=== PATIENT | male | born 2000 | race Caucasian/White ===

== ENCOUNTER 2023-01-24 16:07 | Emergency (ER) | payer OTHER, SELFPAY ==
[2023-01-24 16:22] VITALS: BP 112/68; PULSE 80; RESP 16; TEMP 36.6; O2SAT 100; BMI 26.6
[2023-01-24 17:57] LABS: Appearance Urine UA CLEAR; Bilirubin Urine UA NEGATIVE (NEGATIVE); Color Urine UA YELLOW; Glucose Urine UA NEGATIVE (Negative); Ketones Urine UA NEGATIVE (NEGATIVE); Leukocyte Esterase Urine UA 2+ (NEGATIVE); Nitrite Urine UA NEGATIVE (Negative); Occult Blood Urine UA NEGATIVE (Negative); Protein Urine UA NEGATIVE (Negative); Specific Gravity Urine UA <=1.005 (1.000-1.035); Urobilinogen Urine UA 0.2 E.U./dL (0.2)
[2023-01-24 18:13] LABS: Bacteria Urine Occasional (0-1); Culture Indicated Urine Specimen Cultured; RBC Urine None Seen (0-5/HPF); WBC Urine 5-10/HPF (0-5/HPF)
[2023-01-24 19:07] VITALS: BP 115/70; PULSE 68; RESP 18; O2SAT 99
[2023-01-24 19:24] LABS: Urine N gonorrhoeae NOT DETECTED
[2023-01-24 19:28] LABS: Urine Chlamydia DETECTED
--- NOTE | 2023-01-24 21:42 | ED_ITS ---
HPI - Male Genitourinary General Chief complaint: Urogenital-Male Stated complaint: problem/rectum pain Time Seen by Provider: 01/24/23 18:04 Source: patient Mode of arrival: Ambulatory History of Present Illness HPI Narrative: 22-year-old male nonsmoker sexually active male presents with a few days of burning with urination and penile discharge. He denies any fever or chills nor nausea, vomiting or diarrhea. Additionally he complains of occasional blood when he wipes after a bowel movement and an itchy anus, he is concerned that he may have a hemorrhoid. He is otherwise well and free of complaint Related Data Previous Rx's Medication Instructions Recorded doxycycline hyclate 100 mg tablet 100 mg PO BID #20 tabs 01/24/23 Review of Systems Review of Systems Narrative: GENERAL: Denies chills, fatigue, malaise, fever, sweats. HEENT: Denies sinus pain, ear pain, sore throat, difficulty swallowing, dizziness. RESPIRATORY: Denies dyspnea, cough, wheezing, hemoptysis, sputum. CARDIOVASCULAR: Denies chest pain, palpitations, orthopnea, edema, GASTROINTESTINAL: See HPI : See HPI MUSCULOSKELETAL: denies weakness, joint pain, or bony pain SKIN: Denies rash, skin lesions, or other NEUROLOGIC: Denies weakness, headache, numbness, change in speech, confusion, seizures, incoordination. PSYCHIATRIC: No concerning psychosocial issues. 12 point review of systems is negative except for those stated above Patient History Social History Smoking Status: Never smoker Smoking Status: Never smoker alcohol intake frequency: 0-2 drinks per day Substance Use Type: does not use Exam Narrative Exam Narrative: GENERAL: [22] year old patient appears stated age. Well-developed patient, in mild distress. HEAD: Atraumatic. Normocephalic. EYES: Pupils equal round and reactive. Extraocular motions intact. No scleral icterus. No injection or drainage. ENT: Nose without bleeding, purulent drainage. Throat without erythema, tonsillar hypertrophy or exudate. Airway patent. NECK: Trachea midline. Non tender CARDIOVASCULAR: Regular rate and rhythm without murmurs, gallops, or rubs. RESPIRATORY: Clear to auscultation. Breath sounds equal bilaterally. No wheezes, rales, or rhonchi. GASTROINTESTINAL: Abdomen soft, non-tender, nondistended. RECTAL: Small tender ?lump? at the 8 o'clock position, likely small hemorrhoid, no evidence of thrombosis or active bleeding, no fissure EXTREMITIES: No edema or joint tenderness. BACK: Nontender without deformity or crepitance. No flank tenderness. NEURO: AOx3. SKIN: No rash or erythema of visible areas Initial Vital Signs Initial Vital Signs: Vital Signs Temperature 97.9 F 01/24/23 16:22 Pulse Rate 80 01/24/23 16:22 Respiratory Rate 16 01/24/23 16:22 Blood Pressure 112/68 01/24/23 16:22 Pulse Oximetry 100 01/24/23 16:22 Oxygen Delivery Method Room Air 01/24/23 16:22 Course Orders Ordered: Discontinued Medications Doxycycline Hyclate (Doxycycline Hyclate 100 Mg Tablet) 100 mg PO NOW ONE Stop: 01/24/23 21:43 Last Admin: 01/24/23 21:47 Dose: 100 mg Documented By: TONIO Vital Signs Vital signs: Vital Signs - 8 hr 01/24/23 16:22 01/24/23 19:07 Temperature 97.9 F Pulse Rate 80 68 Respiratory Rate 16 18 Blood Pressure 112/68 115/70 Pulse Oximetry 100 99 Oxygen Delivery Method Room Air Room Air MDM - Male Genitourinary Lab Data Labs: Lab Results 01/24/23 01/24/23 Range/Units 17:48 17:48 Urine Color Yellow Urine Appearance Clear Urine pH 7.0 (4.5-8.0) Ur Specific [place] <=1.005 (1.000-1.035) Urine Protein Negative (Negative) Urine Glucose (UA) Negative (Negative) g/dL Urine Ketones Negative (NEGATIVE) Urine Occult Blood Negative (Negative) Urine Nitrate Negative (Negative) Urine Bilirubin Negative (NEGATIVE) Urine Urobilinogen 0.2 (0.2) E.U./dL Ur Leukocyte Esterase 2+ H (NEGATIVE) Urine RBC None seen (0-5/HPF) Urine WBC 5-10/hpf H (0-5/HPF) Urine Bacteria Occasional (0-1) (None) Ur Culture Indicated? Specimen cultured Ur Chlamydia DNA (PCR) Detected H N gonorrhoeae DNA (PCR) Not detected MDM Narrative Medical decision making narrative: [22] year old patient presents with penile discharge, dysuria and itchy anus Multiple etiologies for patient's symptoms considered including, but not limited to: [Chlamydia, gonorrhea, UTI, hemorrhoid versus other] Prior Charts reviewed in our EMR Primary Historian: patient Labs reviewed and interpreted by myself: Urine positive for chlamydia Urine notes chlamydia, patient started on doxycycline tonight. He is encouraged to notify all sexual partners and encouraged them to be seen and treated as well as abstain from sexual contact until after completion of antibiotics. Additionally his exam is suggestive of possibly reduced hemorrhoid, certainly no evidence of a thrombosed or bleeding hemorrhoid. Given recommendations for [id number] treatments Findings and discharge diagnosis discussed with patient/family followed by verbalization of understanding Return precautions discussed with patient/family whom verbalize understanding of diagnosis and plan Discharge Plan Departure Patient Disposition: Home Clinical Impression: Chlamydia, Hemorrhoid Instructions: DI for Chlamydia, DI for Hemorrhoids Activity Restrictions/Additional Instructions: *You have been diagnosed with [chlamydia and likely mild external hemorrhoids] *What to do: *Please continue to take your regular medications as directed. [x ] New medication prescriptions sent to your pharmacy: [[facility] in [place] ] [ ] New medication written as a paper prescription [ ] No new medications given *Please follow up with your primary care provider in 2-3 days, call for an appointment. Let them know you were seen in the Emergency Department and that we ask that you be seen in follow up. We will electronically transmit a record of today's note if your PCP is in our system * it is very important that you informed all sexual contacts of this diagnosis so they can be evaluated and treated. No sexual contact until 7 days after complete went of antibiotics * as we discussed, there are multiple [id number] options to help treat hemorrhoids. When you get your prescription from [facility] you could try any of the various creams, suppositories etc. that are available *If you do not have a primary care provider please contact the [facility] Resource line at [phone]. They will ask some questions about your medical history and help get you set up with a doctor in the community. *Return to Emergency Department if you should have any new, worsening or concerning symptoms, such as [fever greater than 101 F, shaking chills, worsening pain, persistent vomiting or other bothersome symptoms] Prescriptions: New doxycycline hyclate 100 mg tablet 100 mg PO BID Qty: 20 0RF Stand Alone Forms: Patient Portal/API
[2023-01-24] MEDS: DOXYCYCLINE HYCLATE 100 MG TABLET PO (21:47)
[2023-01-24 21:51] VITALS: BP 121/73; PULSE 68; O2SAT 99
== END 2023-01-24 21:55 | disposition home or self-care (01) ==
PROVIDERS: Family Medicine Addiction Medicine; Emergency Provider Emergency Medicine
DX: A74.9 Chlamydial infection, unspecified (principal); K64.4 Residual hemorrhoidal skin tags
CPT/HCPCS: 81001; 87086; 87491; 87591; 99283